=== PATIENT | male | born 1955 | race Caucasian/White ===

== ENCOUNTER → 2020-12-14 | Outpatient (CLI) | payer OTHER ==
[~2020-12-14] MED LIST: CRESTOR40 MG PO; EMPA25TA PO; FENO160T PO; LISI30TA4 PO; REGADENOSON 0.4 MG/5 ML DISP.SYRIN. IV ONE; VACEPA
--- NOTE | 2020-12-14 13:59 | RAD ---
MR#: [id number] Date of Study: 12/14/2020 Ordering Physician: SHAAN FIGUEROA, Referring Physician: SERA ALMARAZ Tech: RT Inez Vogt) (N) APPROVED REPORT Test Type: Pharmacological Stress Nurse/Tech: Candelaria Nelson RN Test Indications: Chest Pressure Cardiac History: HTN, Family history, See EMR. Medications: See EMR. Medical History: Asthma, DM, See EMR. Resting ECG: SR Resting Heart Rate: 65 bpm Resting Blood Pressure: 150/76mmHg Pretest Chest Pain: No chest pain Nurse/Tech Notes Lungs CTA, Heart tones regular. Consent: The procedure was explained to the patient in lay terms. Informed consent was witnessed. Saúl eout was entered into [employer]. History and Stress Test performed by RT Inez Vogt) (N) Pharm. Details Pharmacologic stress testing was performed using 0.4mg per 5ml of regadenoson given intravenously ove r 7-10 seconds. Stress Symptoms No chest pain or symptoms. POST EXERCISE Reason for Termination: Infusion complete Max HR: 83 bpm Max Blood Pressure: 148/69mmHg Blood Pressure response to exercise: Normal blood pressure response during stress. Heart Rate response to exercise: WNL Chest Pain: No. Arrhythmia: No. ST Change: No. INTERPRETATION Stress EKG Conclusion: Baseline EKG showed sinus rhythm. No ischemic changes at peak stress. No arr hythmias. Imaging Protocol IMAGE PROTOCOL: Rest Tc-99m/stress Tc-99m 1 day Rest: Stress: Viability: Radiopharm.Tc99m [id number] Sestamibi Dose10.4mCi 30mCi Duration 15min. 10min. Img Date 12/14/2020 12/14/2020 Inj-Img [id number]. 60min. Rest Admin Site:IV - Right WristAdministrator:THANH Borrero, ARRT (R)(N) Stress Admin Site: IV - Right WristAdministrator: THANH Borrero, ARRT (R)(N) STRESS DATA End Diast. Vol.91.0mlAv. Heart Rate74.0bpm End Syst. Vol.17.0mlCO Index BSA0.0L/min Myocardial Hisd885.0gEject. Xgfpjwur03.0% Stress Rates Pk. Fill Rate3.84EDV/secLVtime Pk. Fill 198.46msec Pk. Empty Rate5.22ESV/secLVtime Pk. Wrull640.55msec 1/3 Pk. Fill1.64EDV/sec Stress Scores Regional WT0.00Summed WT3.00 Regional WM0.00Summed WM0.00 Study quality was good. Left Ventricular size was Normal at Rest and Stress. Lung uptake was . Left Ventricular ejection fraction is 78%. The rest and stress images show normal perfusion, normal contraction and thickening. LV Perf. Quant 17 Seg. SSS0.00 17 Seg. SRS0.00 17 Seg. SDS0.00 Stress Defect Extent (% LAD)0.00Rest Defect Extent (% LAD)0.00Rev. Defect Extent (% LAD)0.00 Stress Defect Extent (% LCX) 6.30Rest Defect Extent (% LCX)0.00Rev. Defect Extent (% LCX)0.00 Stress Defect Extent (% RCA)0.00Rest Defect Extent (% RCA)0.00Rev. Defect Extent (% RCA)0.00 Stress Defect Extent (% BIRDIE)1.10Rest Defect Extent (% BIRDIE)0.00Rev. Defect Extent (% BIRDIE)0.00 Conclusion 1. Regadenoson cardioisotope stress test did not show any evidence of ischemia or infarct. 2. Normal left ventricular systolic function with ejection fraction calculated at 78%. 3. Low risk for cardiac events. Signed by : Angelo Beth, Electronically Approved : 12/14/2020 13:28:47
--- NOTE | 2020-12-14 17:31 | CARD ---
MR#: [id number] Date of Study: 12/14/2020 Ordering Physician: SHAAN FIGUEROA, Referring Physician: SHAAN FIGUEROA, Tech: Brittani Shipley [facility] APPROVED REPORT EXAM: Two-dimensional and M-mode echocardiogram with Doppler and color Doppler. Other Information Quality : AverageHR: 68bpm Rhythm : NSR INDICATION Dyspnea RISK FACTORS Hypertension Obesity Hyperlipidemia 2D DIMENSIONS RVDd3.3 (2.9-3.5cm)Left Atrium(2D)3.8 (1.6-4.0cm) IVSd1.2 (0.7-1.1cm)Aortic Root(2D)3.3 (2.0-3.7cm) LVDd4.1 (3.9-5.9cm)LVOT Diameter2.0 (1.8-2.4cm) PWd1.1 (0.7-1.1cm)LVDs1.5 (2.5-4.0cm) FS (%) 62.7 %SV67.2 ml LVEF(%)91.4 (>50%) Aortic Valve AoV Peak David.132.5cm/sAoV VTI25.4cm AO Peak GR.7.0mmHgLVOT Peak David.117.8cm/s AO Mean GR.3mmHgAVA (VMAX)2.76cm2 Pulmonary Valve PV Peak Ededpclw346.7cm/s Tricuspid Valve TR P. Fgdtazky404cv/sTR Peak Gr.22mmHg LEFT VENTRICLE The left ventricle is normal size. There is normal left ventricular wall thickness. The left ventricu lar systolic function is normal. Estimated ejection fraction 60-65%. There is normal LV segmental wa ll motion. The left ventricular diastolic function and filling is normal for age. RIGHT VENTRICLE The right ventricle is normal size. The right ventricular systolic function is normal. ATRIA The left atrium size is normal. The right atrium size is normal. The interatrial septum is intact wit h no evidence for an atrial septal defect or patent foramen ovale as noted on 2-D or Doppler imaging. AORTIC VALVE The aortic valve is calcified but opens well. Doppler and Color Flow revealed no significant aortic r egurgitation. There is no significant aortic valvular stenosis. MITRAL VALVE The mitral valve is normal in structure and function. There is no evidence of mitral valve prolapse. There is no mitral valve stenosis. Doppler and Color-flow revealed trace mitral regurgitation. TRICUSPID VALVE The tricuspid valve is normal in structure and function. Doppler and Color Flow revealed trace tricus pid regurgitation. Estimated PAP 25 mmHg. There is no tricuspid valve stenosis. PULMONIC VALVE The pulmonary valve is normal in structure and function. Doppler and Color Flow revealed no pulmonic valvular regurgitation. GREAT VESSELS The aortic root is normal in size. The ascending aorta is normal in size. The IVC is normal in size a nd collapses >50% with inspiration. PERICARDIAL EFFUSION There is no evidence of significant pericardial effusion. Critical Notification Critical Value: No <Conclusion> The left ventricular systolic function is normal. Estimated ejection fraction 60-65%. There is normal LV segmental wall motion. Trace mitral regurgitation. Trace tricuspid regurgitation. Estimated PAP 25 mmHg. There is no evidence of significant pericardial effusion. Signed by : Angelo Beth, Electronically Approved : 12/14/2020 17:31:32
== END ==
LOC: NM 09:38
PROVIDERS: ATTEND Internal Medicine Cardiovascular Disease
DX: I35.1 Nonrheumatic aortic (valve) insufficiency (principal); R01.1 Cardiac murmur, unspecified
CPT/HCPCS: 78452; 93017; 93306; A9500; J2785